=== PATIENT | female | born 1955 | race Caucasian/White ===

== ENCOUNTER 2017-04-07 05:39 | Day surgery (SDC) | payer OTHER ==
[2017-04-07] VITALS (9 sets, daily range): BP systolic 105–140; BP diastolic 52–71; PULSE 73–90; RESP 15–20; Ht 162.6 cm; Wt 91.9 kg
[~2017-04-07] VITALS: Ht 162.6 cm; Wt 91.9 kg
[2017-04-07] MEDS ORDERED: LEVO88TA3 PO (06:29)
[2017-04-07] MEDS ORDERED: ASPI81TA3 PO (06:29)
[2017-04-07] MEDS ORDERED: POLYMYXIN/BACITRACIN 1L IRRIG ONE (06:58)
[2017-04-07] MEDS ORDERED: BUPIVACAINE 0.25% (MPF) 30 ML INJ ONE (06:58)
--- NOTE | 2017-04-07 07:19 | HPN ---
Date/Time of Note Date/Time of Note DATE: 04/07/17 TIME: 07:19 Interval H&P Admission Note Pt. seen H&P reviewed: No system changes JUANPABLO MA MD Apr 07, 2017 07:19
[2017-04-07] MEDS ORDERED: GLYCOPYRROLATE 0.4 MG INJ ONE (07:24)
[2017-04-07] MEDS ORDERED: NEOSTIGMINE 3 MG/3 ML SYRINGE ONE (07:24)
[2017-04-07] MEDS ORDERED: CEFAZOLIN 1 GM INJ ONE (07:24)
[2017-04-07] MEDS ORDERED: ROCURONIUM 50 MG INJ ONE (07:24)
[2017-04-07] MEDS ORDERED: PROPOFOL 20 ML ONE (07:24)
[2017-04-07] MEDS ORDERED: ONDANSETRON 4 MG INJ ONE (07:25)
[2017-04-07] MEDS ORDERED: MIDAZOLAM 1 MG/ML 2 ML INJ ONE (07:25)
[2017-04-07] MEDS ORDERED: FENTAnyl 50 MCG/ML VIAL ONE (07:25)
[2017-04-07] MEDS ORDERED: DEXAMETHASONE 4 MG/ML 1 ML INJ ONE (07:25)
[2017-04-07] MEDS ORDERED: SUGAMMADEX SODIUM 200 MG/2 ML VIAL IV ONE (08:10)
--- NOTE | 2017-04-07 08:18 | OPR ---
Date/Time of Note Date/Time of Note DATE: 04/07/17 TIME: 08:12 Operative Report Procedure Date: Apr 07, 2017 Preoperative Diagnosis Umbilical hernia without obstruction Postoperative Diagnosis Umbilical hernia without obstruction Operation/Procedure Performed Repair with small circular Proceed patch Surgeon Rupesh Ma MD [employer] None Anesthesia Type: general Anesthesiologist: Etienne Silveira M.D. Estimated Blood Loss: 0 - 10 ml's Transfusion none Specimen Sac Grafts/Implants 1.7 inch small circular Proceed patch Tubes/Drains None Complications none Pt Condition Post Procedure: stable Disposition: PACU Indications Symptomatic Procedure Description After satisfactory general anesthesia was achieved, the abdomen was prepped and draped in usual fashion. A left circumumbilical incision was made and carried down to the fascia. The sac was dissected from the skin and excised at the level of the fascia and submitted the fascial defect was approximately 2 cm. A small circular proceed patch was placed below the fascia as an underlay, and secured to healthy fascia via its mesh straps utilizing interrupted 2-0 Novafil suture. The resultant repair was a tension-free underlay repair. Redundant straps were excised and discarded. The wound was infiltrated with 20 cc of 0.5 % Marcaine. The umbilicus was tacked to the midline with 3-0 Vicryl, and the skin closed with lelo. Sponge and needle counts were reported as correct 2. RUPESH MA MD Apr 07, 2017 08:17
[2017-04-07] MEDS ORDERED: OXYCODONE/ACETAMINOPHEN (5/325) TAB PO PRN ×4 (08:30→10:00)
[2017-04-07] MEDS ORDERED: ALBUTEROL 0.083% (NEB) 2.5 MG/3 ML AMP HHN PRN (08:30)
[2017-04-07] MEDS ORDERED: LABETALOL HCL 20MG INJ IV PRN (08:30)
[2017-04-07] MEDS ORDERED: MIDAZOLAM 1 MG/ML 2 ML INJ IV PRN (08:30)
[2017-04-07] MEDS ORDERED: DIPHENHYDRAMINE 50 MG INJ IV PRN (08:30)
[2017-04-07] MEDS ORDERED: HYDROmorphONE (0.2 MG/ML) 10ML SYG IV PRN ×3 (08:30)
[2017-04-07] MEDS ORDERED: EPHEDrine SULFATE 50 MG/5 ML SYG IV PRN (08:30)
[2017-04-07] MEDS ORDERED: TRIMETHOBENZAMIDE 100 MG/ML VIAL IM PRN (08:30)
[2017-04-07] MEDS ORDERED: ONDANSETRON 4 MG INJ IV PRN ×2 (08:30→10:00)
[2017-04-07] MEDS ORDERED: FENTAnyl 50 MCG/ML VIAL IV PRN ×3 (08:30)
[2017-04-07] MEDS ORDERED: hydrALAzine 20 MG INJ IV PRN (08:30)
[2017-04-07] MEDS ORDERED: IPRATROPIUM (NEB) 0.5 MG/2.5 ML AMP HHN PRN (08:30)
[2017-04-07] MEDS ORDERED: MEPERIDINE 25 MG INJ IV PRN (08:30)
[2017-04-07] MEDS ORDERED: morphine 2 MG INJ IV PRN (10:00)
== END 2017-04-07 10:42 | disposition home or self-care (01) ==
LOC: SDS 05:39
PROVIDERS: ATTEND Surgery
DX: K42.9 Umbilical hernia without obstruction or gangrene (principal); E03.9 Hypothyroidism, unspecified
CPT/HCPCS: 49585; C1781; J0690; J1100; J1170; J2250; J2405; J3010; Z7512; Z7610; J2710